=== PATIENT | female | born 1970 | race Caucasian/White ===

== ENCOUNTER 2018-02-04 18:21 | Emergency (ER) | payer BC ==
[~2018-02-04] VITALS: Ht 167.6 cm; Wt 90.9 kg
[~2018-02-04 18:21] MED LIST: ALBU8I INH; ONDA1TAB16 PO; PRED10PA PO; TRAM50 PO; Z.0.NO CURRENT MEDS; ZITHTAB6 PO
[2018-02-04 18:48] VITALS: BP 131/74; PULSE 80; RESP 20; TEMP 98.7; O2SAT 99
[2018-02-04] MEDS ORDERED: SODIUM CHLOR 0.9% 1000 ML INJ 1,000 ML IV ONE (20:28)
[2018-02-04] MEDS ORDERED: SODIUM CHLORIDE 0.9% FLUSH 10 ML FLUSH IVF PRN (20:30)
[2018-02-04 20:45] VITALS: BP 139/63; PULSE 74; RESP 16; TEMP 98.6; O2SAT 97
[2018-02-04] MEDS ORDERED: IBUPROFEN 800 MG TAB PO ONE (21:30)
--- NOTE | 2018-02-04 21:49 | PD ---
HPI Chief Complaint: Flank/Kidney Pain Time Seen by Provider: 20:22 Travel History International Travel<30 days: No Contact w/Intl Traveler<30days: No Traveled to known affect area: No History of Present Illness HPI Patient is a 47-year-old female presenting to the emergency department for evaluation of back pain, dysuria, urinary hesitancy. Patient states it started 2 days ago, she reports a low-grade temp at home with a max temp of 99.8. She denies any nausea, vomiting, abdominal pain. She denies any vaginal discharge. Symptom onset was gradual, symptoms are moderate in severity, there are no alleviating factors. PFSH Past Medical History Arthritis: Yes Bipolar Disorder: Yes Anxiety: Yes Depression: Yes Cancer: Yes (CERVICAL) Chest Pain: Yes Musculoskeletal: Yes (FIBROMYALGIA) Psychiatric: Yes Reproductive: Yes (OVERACTIVE OVARY/ENDOMETRIOSIS) Immunizations Current: Yes Migraines: Yes Pneumonia: Yes Seizures: Yes Thyroid Disease: Yes Tetanus Vaccination: < 5 Years Influenza Vaccination: No ?: Not LMP: 01/27/18 : 2 Para: 1 Miscarriage: 1 Ovarian Cysts: Yes Past Surgical History Abdominal Surgery: No AICD: No Arteriovenous Shunt: No Body Medical Devices: C-SPINE ABNORMALITY. Cardiac Surgery: No Ear Surgery: Yes Endocrine Surgery: Yes Eye Surgery: No Genitourinary Surgery: No Gynecologic Surgery: Yes (LAPAROSCOPY) Insulin Pump: No Joint Replacement: No Neurologic Surgery: No Oral Surgery: Yes (EXTRACTIONS) Pacemaker: No Thoracic Surgery: Yes (THYROIDECTOMY) Tonsillectomy: Yes Other Surgery: Yes Social History Alcohol Use: Yes (OCCASSIONAL) Tobacco Use: Yes (7 CIGARETTES) Substance Use: No (Pt Denies COCAINE AND MARIJUANA) Allergies-Medications (Allergen,Severity, Reaction): Coded Allergies: acetaminophen (Unverified Allergy, Severe, WORSE HEADACHE, 06/19/17) butalbital (Unverified Allergy, Severe, WORSE HEADACHE, 06/19/17) caffeine (Unverified Allergy, Severe, WORSE HEADACHE, 06/19/17) ketorolac (Unverified Allergy, Severe, WORSE HEADACHE, 06/19/17) penicillin G (Unverified Allergy, Severe, DIARRHEA, 06/19/17) paroxetine (Unverified Adverse Reaction, Severe, diarrhea, 06/19/17) Reported Meds & Prescriptions Reported Meds & Active Scripts Active Ventolin Hfa (Albuterol Sulfate) 8 Gm Aero 2 Puff INH Q4 * SHAKE WELL BEFORE USE * Sterapred Ds 12 Day Pack (Prednisone) 10 Mg Silvestre 10 Mg PO DIRECTED USE DIRECTED Zithromax Tri-Silvestre (Azithromycin) Tab 500 Mg PO DIRECTED 3 Days 1 TAB (500 MG) PO DAILY FOR 3 DAYS. Ultram (Tramadol HCl) 50 Mg Tab 50 Mg PO Q4HPRN FOR PAIN Zofran Tab (Ondansetron HCl) 4 Mg Tab 4 Mg PO Q6HPRN Reported No Current Meds (Miscellaneous Medication) Misc Review of Systems Except as stated in HPI: all other systems reviewed are Neg Genitourinary: Positive: Urgency, Dysuria, Hesitancy Musculoskeletal: Positive: Pain Physical Exam Narrative GENERAL: Well-developed, well-nourished, alert female. Presenting to the emergency department no acute distress. SKIN: Warm and dry. HEAD: Atraumatic. Normocephalic. EYES: Pupils equal and round. No scleral icterus. No injection or drainage. ENT: No nasal bleeding or discharge. Mucous membranes pink and moist. NECK: Trachea midline. No JVD. CARDIOVASCULAR: Regular rate and rhythm. RESPIRATORY: No accessory muscle use. Clear to auscultation. Breath sounds equal bilaterally. GASTROINTESTINAL: Abdomen soft, non-tender, nondistended. Hepatic and splenic margins not palpable. Positive bowel sounds, no rebound, no guarding MUSCULOSKELETAL: Extremities without clubbing, cyanosis, or edema. No obvious deformities. NEUROLOGICAL: Awake and alert. No obvious cranial nerve deficits. Motor grossly within normal limits. Five out of 5 muscle strength in the arms and legs. Normal speech. PSYCHIATRIC: Appropriate mood and affect; insight and judgment normal. Data Data Last Documented VS Vital Signs Date Time Temp Pulse Resp B/P (MAP) Pulse Ox O2 Delivery O2 Flow Rate FiO2 02/04/18 20:45 98.6 74 16 139/63 (88) 97 Room Air Orders Orders Complete Blood Count With Diff (02/04/18 18:50) Comprehensive Metabolic Panel (02/04/18 18:50) Urinalysis - C+S If Indicated (02/04/18 18:50) Ed Urine Pregnancytest Poc (02/04/18 18:50) Ecg Monitoring (02/04/18 20:28) Iv Access Insert/Monitor (02/04/18 20:28) Sodium Chloride 0.9% Flush (Ns Flush) (02/04/18 20:30) Sodium Chlor 0.9% 1000 Ml Inj (Ns 1000 M (02/04/18 20:28) Ibuprofen (Motrin) (02/04/18 21:30) Urine Culture (02/04/18 21:53) Nitrofurantoin Monohyd Macrocr (Macrobid (02/04/18 22:30) Labs Laboratory Tests Test 02/04/18 21:53 White Blood Count 8.1 TH/MM3 Red Blood Count 4.45 MIL/MM3 Hemoglobin 13.9 GM/DL Hematocrit 41.0 % Mean Corpuscular Volume 92.2 FL Mean Corpuscular Hemoglobin 31.3 PG Mean Corpuscular Hemoglobin Concent 33.9 % Red Cell Distribution Width 13.2 % Platelet Count 240 TH/MM3 Mean Platelet Volume 8.0 FL Neutrophils (%) (Auto) 66.2 % Lymphocytes (%) (Auto) 23.0 % Monocytes (%) (Auto) 9.3 % Eosinophils (%) (Auto) 1.3 % Basophils (%) (Auto) 0.2 % Neutrophils # (Auto) 5.3 TH/MM3 Lymphocytes # (Auto) 1.9 TH/MM3 Monocytes # (Auto) 0.7 TH/MM3 Eosinophils # (Auto) 0.1 TH/MM3 Basophils # (Auto) 0.0 TH/MM3 CBC Comment DIFF FINAL Differential Comment Urine Color YELLOW Urine Turbidity HAZY Urine pH 6.0 Urine Specific [place] 1.041 Urine Protein TRACE mg/dL Urine Glucose (UA) NEG mg/dL Urine Ketones NEG mg/dL Urine Occult Blood NEG Urine Nitrite NEG Urine Bilirubin NEG Urine Urobilinogen 2.0 MG/DL Urine Leukocyte Esterase LARGE Urine RBC 10 /hpf Urine WBC 26 /hpf Urine Squamous Epithelial Cells 9 /hpf Urine Mucus FEW /lpf Microscopic Urinalysis Comment CULTURE INDICATED Blood Urea Nitrogen 23 MG/DL Creatinine 1.18 MG/DL Random Glucose 64 MG/DL Total Protein 6.9 GM/DL Albumin 3.7 GM/DL Calcium Level 8.8 MG/DL Alkaline Phosphatase 73 U/L Aspartate Amino Transf (AST/SGOT) 9 U/L Alanine Aminotransferase (ALT/SGPT) 15 U/L Total Bilirubin 0.2 MG/DL Sodium Level 142 MEQ/L Potassium Level 4.0 MEQ/L Chloride Level 107 MEQ/L Carbon Dioxide Level 28.2 MEQ/L Anion Gap 7 MEQ/L Estimat Glomerular Filtration Rate 50 ML/MIN [facility] Medical Decision Making Medical Screen Exam Complete: Yes Emergency Medical Condition: Yes Medical Record Reviewed: Yes Interpretation(s) Laboratory Tests Test 02/04/18 21:53 White Blood Count 8.1 TH/MM3 Red Blood Count 4.45 MIL/MM3 Hemoglobin 13.9 GM/DL Hematocrit 41.0 % Mean Corpuscular Volume 92.2 FL Mean Corpuscular Hemoglobin 31.3 PG Mean Corpuscular Hemoglobin Concent 33.9 % Red Cell Distribution Width 13.2 % Platelet Count 240 TH/MM3 Mean Platelet Volume 8.0 FL Neutrophils (%) (Auto) 66.2 % Lymphocytes (%) (Auto) 23.0 % Monocytes (%) (Auto) 9.3 % Eosinophils (%) (Auto) 1.3 % Basophils (%) (Auto) 0.2 % Neutrophils # (Auto) 5.3 TH/MM3 Lymphocytes # (Auto) 1.9 TH/MM3 Monocytes # (Auto) 0.7 TH/MM3 Eosinophils # (Auto) 0.1 TH/MM3 Basophils # (Auto) 0.0 TH/MM3 CBC Comment DIFF FINAL Differential Comment Urine Color YELLOW Urine Turbidity HAZY Urine pH 6.0 Urine Specific [place] 1.041 Urine Protein TRACE mg/dL Urine Glucose (UA) NEG mg/dL Urine Ketones NEG mg/dL Urine Occult Blood NEG Urine Nitrite NEG Urine Bilirubin NEG Urine Urobilinogen 2.0 MG/DL Urine Leukocyte Esterase LARGE Urine RBC 10 /hpf Urine WBC 26 /hpf Urine Squamous Epithelial Cells 9 /hpf Urine Mucus FEW /lpf Microscopic Urinalysis Comment CULTURE INDICATED Blood Urea Nitrogen 23 MG/DL Creatinine 1.18 MG/DL Random Glucose 64 MG/DL Total Protein 6.9 GM/DL Albumin 3.7 GM/DL Calcium Level 8.8 MG/DL Alkaline Phosphatase 73 U/L Aspartate Amino Transf (AST/SGOT) 9 U/L Alanine Aminotransferase (ALT/SGPT) 15 U/L Total Bilirubin 0.2 MG/DL Sodium Level 142 MEQ/L Potassium Level 4.0 MEQ/L Chloride Level 107 MEQ/L Carbon Dioxide Level 28.2 MEQ/L Anion Gap 7 MEQ/L Estimat Glomerular Filtration Rate 50 ML/MIN Vital Signs Date Time Temp Pulse Resp B/P (MAP) Pulse Ox O2 Delivery O2 Flow Rate FiO2 02/04/18 20:45 98.6 74 16 139/63 (88) 97 Room Air 02/04/18 18:48 98.7 80 20 131/74 (93) 99 Differential Diagnosis UTI versus pyelonephritis versus metabolic abnormality versus muscle strain versus muscle spasm versus other Narrative Course Patient is a 47-year-old female presenting evaluation of urinary symptoms started 2 days ago. Patient's vital signs are stable, labs ordered and pending. Patient will be given IV fluids. Diagnosis Primary Impression: Urinary tract infection Qualified Codes: N39.0 - Urinary tract infection, site not specified; R31.9 - Hematuria, unspecified Referrals: Primary Care Physician 1 week Patient Instructions: General Instructions, Urinary Tract Infection in Women ( [place]) Additional Instructions: Complete full course of antibiotics as prescribed Increase oral fluid intake Follow-up with your primary doctor Return to emergency department for any new worsening symptoms Med/Other Pt SpecificInfo: Prescription(s) given Scripts Nitrofurantoin Monohydrate Macrocrystals (Nitrofurantoin Monohydrate Macrocrystals) 100 Mg Cap 100 MG PO BID for Infection, #14 CAP 0 Refills Prov: Li Chadwick 02/04/18 Disposition: 01 DISCHARGE HOME Condition: Stable Li Chadwick Feb 04, 2018 21:49
[2018-02-04 22:07] LABS: BILIRUBIN, URINE NEG (NEG); BLOOD, URINE NEG (NEG); GLUCOSE,URINE NEG (NEG); KETONE, URINE NEG (NEG); MUCUS URINE FEW /lpf (OCC); NITRITE,URINE NEG (NEG); SQUAMOUS EPITHELIAL CELL URINE 9 /hpf (0-5); URINE COLOR YELLOW (YELLW/STRAW); URINE LEUKOCYTE ESTERASE LARGE (NEG)
[2018-02-04 22:09] LABS: AUTOMATED NEUTROPHIL # 5.3 TH/MM3 (1.8-7.7); BASOPHIL % 0.2 % (0.0-2.0); EOSINOPHIL # 0.1 TH/MM3 (0-0.4); EOSINOPHIL % 1.3 % (0.0-4.0); HEMOGLOBIN 13.9 GM/DL (11.6-15.3); LYMPHOCYTE # 1.9 TH/MM3 (1.0-4.8); MEAN CELL VOLUME 92.2 FL (80.0-100.0); MEAN CORPUSCULAR HEMOGLOBIN 31.3 PG (27.0-34.0); MEAN CORPUSCULAR HGB CONC 33.9 % (32.0-36.0); MONO % 9.3 % (0.0-8.0); MONOCYTE # 0.7 TH/MM3 (0-0.9); NEUT % 66.2 % (16.0-70.0); PLATELET COUNT 240 TH/MM3 (150-450); RED BLOOD COUNT 4.45 MIL/MM3 (4.00-5.30); RED CELL DISTRIBUTION WIDTH 13.2 % (11.6-17.2); WHITE BLOOD COUNT 8.1 TH/MM3 (4.0-11.0)
[2018-02-04] MEDS ORDERED: NITROFURANTOIN MONOHYD MACROCR 100 MG CAP PO ONE (22:30)
[2018-02-04 22:31] LABS: ALBUMIN 3.7 GM/DL (3.4-5.0); ALT (GPT) 15 U/L (10-53); AST (GOT) 9 U/L (15-37); BICARBONATE 28.2 MEQ/L (21.0-32.0); BLOOD UREA NITROGEN 23 MG/DL (7-18); CALCIUM 8.8 MG/DL (8.5-10.1); CHLORIDE 107 MEQ/L (98-107); CREATININE 1.18 MG/DL (0.50-1.00); GLOMERULAR FILTRATION RATE 50 ML/MIN (>89); GLUCOSE,RANDOM 64 MG/DL (74-106); SODIUM (NA) 142 MEQ/L (136-145)
[2018-02-04 22:33] LABS: ALKALINE PHOSPHATASE 73 U/L (45-117); TOTAL BILIRUBIN ADULT 0.2 MG/DL (0.2-1.0); TOTAL PROTEIN 6.9 GM/DL (6.4-8.2)
[2018-02-04] MEDS ORDERED: NITR100C4 PO (22:58)
== END 2018-02-04 23:22 | disposition home or self-care (01) ==
LOC: NED 18:21 → NEPD 23:22
DX: N39.0 Urinary tract infection, site not specified (principal); R31.9 Hematuria, unspecified; F17.210 Nicotine dependence, cigarettes, uncomplicated
CPT/HCPCS: 80053; 81001; 84703; 85025; 87086; 99284; J7030